=== PATIENT | female | born 1980 | race Caucasian/White ===

== ENCOUNTER 2017-08-21 11:52 | Emergency (ER) | payer SELFPAY ==
[~2017-08-21] VITALS: Ht 160 cm; Wt 81.5 kg
[~2017-08-21 11:52] MED LIST: BACT800T5 PO; CLIN1CAP5 PO; TRAM50 PO
[2017-08-21 12:01] VITALS: BP 131/78; PULSE 80; RESP 16; TEMP 98.4; O2SAT 95
[2017-08-21] MEDS ORDERED: XANA2TAB2 PO (13:59)
[2017-08-21] MEDS ORDERED: HYDR-3516 PO (13:59)
--- NOTE | 2017-08-21 13:59 | PD ---
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 She endorses dyspareunia. LMP 07/27/17, lasted 3 days, normal flow. She states that " I have cervical cancer and I've been treating with multiple herbal remedies." She also complains of pain in the 10 o'clock position of the right breast for 2 days. She states that she has been able to express milk from both nipples "for years. " She denies fever, chills, nausea, vomiting, anorexia, changes in bowel habits , dysuria, irregular menstrual bleeding. She hasn't had a Pap smear in 7 years. 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 BACK: Anxious, tearful, tangential, pressured speech. SKIN: Focused skin assessment warm/dry. BREAST: Bilateral breast implants. No appreciable masses, LAD, peau de orange. No nipple discharge. HEAD: Normocephalic. EYES: No scleral icterus. No injection or drainage. NECK: Supple, trachea midline. No JVD or lymphadenopathy. CARDIOVASCULAR: Regular rate and rhythm without murmurs, gallops, or rubs. RESPIRATORY: Breath sounds equal bilaterally. No accessory muscle use. GASTROINTESTINAL: Abdomen soft, non-tender, nondistended. No suprapubic tenderness. Active bowel sounds. GENITOURINARY: Normal external genitalia without lesions or erythema. Vaginal vault without blood. Small amount of thin, stringy, white drainage. Cervical os was closed without drainage. No cervical motion tenderness. Uterus nontender and nonenlarged. Bilateral adnexa nontender without masses. MUSCULOSKELETAL: No cyanosis, or edema. BACK: Nontender without obvious deformity. No CVA tenderness. Data Data Last Documented VS Vital Signs Date Time Temp Pulse Resp B/P (MAP) Pulse Ox O2 Delivery O2 Flow Rate FiO2 08/21/17 13:59 76 17 08/21/17 12:01 98.4 131/78 (95) 95 Orders Orders Urinalysis - C+S If Indicated (08/21/17 13:57) Ed Urine Pregnancytest Poc (08/21/17 13:57) Wet Prep Profile (08/21/17 13:57) Gc And Chlamydia Pcr (08/21/17 13:57) Labs Laboratory Tests Test 08/21/17 14:04 08/21/17 14:15 Urine Color YELLOW Urine Turbidity CLEAR Urine pH 6.5 Urine Specific Stella 1.015 Urine Protein NEG mg/dL Urine Glucose (UA) NEG mg/dL Urine Ketones NEG mg/dL Urine Occult Blood NEG Urine Nitrite NEG Urine Bilirubin NEG Urine Urobilinogen LESS THAN 2.0 MG/DL Urine Leukocyte Esterase NEG Urine RBC LESS THAN 1 /hpf Urine Squamous Epithelial Cells 2 /hpf Microscopic Urinalysis Comment CULT NOT INDICATED Clue Cells (Wet Prep) NONE SEEN Vaginal Trichomonas (Wet Prep) NONE SEEN Vaginal Yeast (Wet Prep) NONE SEEN MDM Medical Decision Making Medical Screen Exam Complete: Yes Emergency Medical Condition: Yes Differential Diagnosis UTI versus STI versus candidiasis versus other Narrative Course 37-year-old female presents to the ED for evaluation of six-month history of greenish vaginal discharge, pelvic pain. Also complains of pain in the 10 o' clock position of the right breast. Vitals reviewed. On physical exam the patient is very anxious but the abdominal exam is reassuring. Breast exam limited secondary to large implants bilaterally, no axillary LAD noted. Pelvic exam reveals small amount of white discharge in the vault but is otherwise unremarkable. Bedside urine test negative. No culture indicated of the UA. Wet prep negative. GC and chlamydia pending. I offered the patient empiric treatment for gonorrhea and chlamydia, which she declines at this time. Patient is instructed to follow-up with either the [facility], [facility] or the Health department. Patient indicated understanding of the instructions and is agreeable to the discharge plan. She is stable and discharged home. Diagnosis Primary Impression: Vaginal discharge Additional Impression: Pelvic pain in female Referrals: [facility] Dept. Patient Instructions: General Instructions, Pelvic Pain in Women (ED), Vaginal Discharge (ED) Additional Instructions: Rest, hydrate. Return to normal, gentle activity as tolerated. Follow up for Pap smear and further evaluation, including full STI screening , with either the [facility], [facility] or the [facility]. Return to the ED for any urgent or emergent medical condition. Disposition: 01 DISCHARGE HOME Condition: Stable Saida Stokes Aug 21, 2017 13:58
[2017-08-21 15:02] LABS: BLOOD, URINE NEG (NEG); GLUCOSE,URINE NEG (NEG); KETONE, URINE NEG (NEG); NITRITE,URINE NEG (NEG); PH, URINE 6.5 (5.0-8.5); SQUAMOUS EPITHELIAL CELL URINE 2 /hpf (0-5); URINE COLOR YELLOW (YELLW/STRAW)
[2017-08-21 15:07] LABS: COMMENT (UR) CULT NOT INDICATED; CULTURE IF INDICATED CULT NOT INDICATED
[2017-08-21 15:25] VITALS: BP 110/81; TEMP 97.7
[2017-08-21 17:00] LABS: CHLAMYDIA PCR NOT DETECTED (NOT DETECT); NEISSERIA PCR NOT DETECTED (NOT DETECT)
== END 2017-08-21 15:25 | disposition home or self-care (01) ==
LOC: NEPD 11:52
DX: N89.8 Other specified noninflammatory disorders of vagina (principal); R10.2 Pelvic and perineal pain; F17.200 Nicotine dependence, unspecified, uncomplicated
CPT/HCPCS: 81001; 84703; 87210; 87491; 87591; 99283